=== PATIENT | male | born 1935 | race Caucasian/White ===

== ENCOUNTER 2024-05-17 10:37 | Observation (INO) | payer MEDICARE ==
[2024-05-17] VITALS (20 sets, daily range): BP systolic 121–188; BP diastolic 67–121
[~2024-05-17] VITALS: Ht 175.3 cm; Wt 68.2 kg
[2024-05-17 11:16] LABS: BASO% 0.3 % (0-3); EOS% 0.9 % (0-8); HEMATOCRIT 39.4 % (39.0-50.0); HEMOGLOBIN 13.5 g/dl (14.0-18.0); IMMATURE GRANULOCYTES 0.3 % (0.0-5.0); LYMPH% 8.7 % (15-41); MEAN CELL VOLUME 90.4 fL CALC (80.0-100.0); MEAN CORPUSCULAR HGB CONC 34.3 g/dL CAL (32.0-36.0); MONO% 6.6 % (2-13); NEUT# 5.57 thou/uL (1.82-7.42); NEUT% 83.2 % (42-76); RED BLOOD COUNT 4.36 mill/uL (4.70-6.10)
[2024-05-17 11:32] LABS: ALBUMIN 3.8 g/dL (3.2-5.0); ALKALINE PHOSPHATASE 70 u/l (38-126); ANION GAP 14 (6-22 (CALC)); BILIRUBIN, TOTAL 0.6 mg/dL (0.2-1.3); BUN 9 mg/dL (8-23); BUN/CREATININE RATIO 15 (12-20 (CALC)); CARBON DIOXIDE 27 mmol/l (22-30); CHLORIDE 93 mmol/l (95-108); CREATININE 0.6 mg/dL (0.7-1.3); ESTIMATED GFR 93 ML/MIN (>=90 (CALC)); POTASSIUM 4.5 mmol/l (3.5-5.1); SGOT/AST 23 u/l (19-48); SODIUM 129 mmol/l (137-146); TOTAL PROTEIN 6.2 g/dL (6.3-8.2)
[2024-05-17 11:37] LABS: PROTHROMBIN TIME 10.8 SECONDS (9.0-12.5)
[2024-05-17 12:17] LABS: URINE BILIRUBIN - DIPSTICK Negative (NEGATIVE); URINE BLOOD DIPSTICK Negative (NEGATIVE); URINE COLOR Yellow; URINE GLUCOSE - DIPSTICK >=1000 mg/dL (NEGATIVE); URINE KETONE Trace mg/dL (NEGATIVE); URINE LEUK ESTERASE Negative (NEGATIVE); URINE NITRITE - DIPSTICK Negative (Negative); URINE PH 6.5 (4.5-8.0); URINE PROTEIN - DIPSTICK Negative (NEG-TRACE); URINE SPECIFIC GRAVITY 1.015; URINE UROBILINOGEN - DIPSTICK 0.2 E.U./dL (0.2)
[2024-05-17] MEDS ORDERED: CLOPIDOGREL75 MG PO (12:54)
[2024-05-17] MEDS ORDERED: METFORMIN HCL500 M1 PO (12:55)
[2024-05-17] MEDS ORDERED: [UNRECOGNIZED DRUG - OTHER] PO (12:55)
[2024-05-17] MEDS ORDERED: FARXIGA10 MG PO (12:56)
[2024-05-17] MEDS ORDERED: LOSARTAN POTASS25 MG PO (12:56)
[2024-05-17] MEDS ORDERED: DESYREL50 MG PO (12:57)
[2024-05-17] MEDS ORDERED: LORTAB5 PO (12:58)
[2024-05-17] MEDS ORDERED: ASPIRINCHW 81MG PO (12:58)
[2024-05-17] MEDS ORDERED: CETIRIZINE10 MG PO (12:59)
[2024-05-17] MEDS ORDERED: MAGNESIUM HYDROXIDE 30 ML UDC PO PRN (14:45)
[2024-05-17] MEDS ORDERED: ACETAMINOPHEN 325 MG/TAB PO PRN (14:45)
[2024-05-17] MEDS ORDERED: SODIUM CHLORIDE 0.9% 1,000 ML IV PRN (14:45)
[2024-05-17] MEDS ORDERED: HYDROcodone 5 MG/Acetaminophen 325 MG/COMBO PO PRN ×2 (14:50→23:25)
[2024-05-17] MEDS ORDERED: DEXTROSE 250 ML IV PRN (14:50)
[2024-05-17] MEDS ORDERED: INSULIN LISPRO 100 UNITS/ML ML SC SCH (17:00)
[2024-05-17] MEDS ORDERED: ENOXAPARIN SODIUM 40 MG/0.4 ML SYR SC SCH (21:00)
[2024-05-17] MEDS ORDERED: traZODone HCL 50 MG/TAB PO SCH (21:00)
[2024-05-18 04:26] VITALS: BP 166/93
[2024-05-18 05:53] LABS: BASO% 0.4 % (0-3); EOS% 2.3 % (0-8); HEMATOCRIT 38.8 % (39.0-50.0); HEMOGLOBIN 13.7 g/dl (14.0-18.0); IMMATURE GRANULOCYTES 0.2 % (0.0-5.0); LYMPH% 27.6 % (15-41); MEAN CORPUSCULAR HGB 31.8 pG CALC (26.0-32.0); MEAN CORPUSCULAR HGB CONC 35.3 g/dL CAL (32.0-36.0); MONO% 9.8 % (2-13); NEUT# 3.35 thou/uL (1.82-7.42); NEUT% 59.7 % (42-76); RED BLOOD COUNT 4.31 mill/uL (4.70-6.10)
[2024-05-18 06:01] LABS: ALBUMIN 3.5 g/dL (3.2-5.0); BILIRUBIN, TOTAL 0.5 mg/dL (0.2-1.3); CREATININE 0.5 mg/dL (0.7-1.3); MAGNESIUM 1.9 mg/dL (1.6-2.3); POTASSIUM 4.3 mmol/l (3.5-5.1); TOTAL PROTEIN 5.8 g/dL (6.3-8.2)
[2024-05-18 06:57] VITALS: BP 173/96
[2024-05-18] MEDS ORDERED: LOSARTAN Potassium 25 MG/TAB PO SCH (09:00)
[2024-05-18] MEDS ORDERED: dilTIAZem HCl EXTENDED RELEASE 120 MG CAP PO SCH (09:00)
[2024-05-18] MEDS ORDERED: CLOPIDOGREL BISULFATE 75 MG/TAB TAB PO SCH (09:00)
[2024-05-18] MEDS ORDERED: ASPIRIN 81 MG/TAB PO SCH (09:00)
[2024-05-18 15:05] VITALS: BP 136/67
[2024-05-18 15:12] VITALS: BP 136/67
[2024-05-18 18:47] VITALS: BP 152/80
[2024-05-19 04:16] VITALS: BP 123/62
[2024-05-19 06:06] LABS: BASO% 0.5 % (0-3); EOS% 2.8 % (0-8); HEMATOCRIT 36.1 % (39.0-50.0); HEMOGLOBIN 12.5 g/dl (14.0-18.0); IMMATURE GRANULOCYTES 0.2 % (0.0-5.0); LYMPH% 25.6 % (15-41); MEAN CELL VOLUME 89.8 fL CALC (80.0-100.0); MEAN CORPUSCULAR HGB 31.1 pG CALC (26.0-32.0); MEAN CORPUSCULAR HGB CONC 34.6 g/dL CAL (32.0-36.0); MONO% 9.5 % (2-13); NEUT# 3.94 thou/uL (1.82-7.42); NEUT% 61.4 % (42-76); RED BLOOD COUNT 4.02 mill/uL (4.70-6.10); RED CELL DISTRI WIDTH 12.1 % (11.5-15.5)
[2024-05-19 06:09] LABS: ALBUMIN 3.1 g/dL (3.2-5.0); BILIRUBIN, TOTAL 0.6 mg/dL (0.2-1.3); CREATININE 0.5 mg/dL (0.7-1.3); MAGNESIUM 1.7 mg/dL (1.6-2.3); POTASSIUM 3.7 mmol/l (3.5-5.1); TOTAL PROTEIN 5.3 g/dL (6.3-8.2)
[2024-05-19 07:34] VITALS: BP 164/87
[2024-05-19 17:58] VITALS: BP 150/96
[2024-05-20 04:00] VITALS: BP 131/74
[2024-05-20 05:35] LABS: BASO% 0.7 % (0-3); EOS% 3.9 % (0-8); HEMATOCRIT 35.7 % (39.0-50.0); HEMOGLOBIN 12.7 g/dl (14.0-18.0); IMMATURE GRANULOCYTES 0.2 % (0.0-5.0); LYMPH% 30.8 % (15-41); MEAN CELL VOLUME 89.3 fL CALC (80.0-100.0); MEAN CORPUSCULAR HGB 31.8 pG CALC (26.0-32.0); MEAN CORPUSCULAR HGB CONC 35.6 g/dL CAL (32.0-36.0); MONO% 10.1 % (2-13); NEUT# 2.9 thou/uL (1.82-7.42); NEUT% 54.3 % (42-76); RED CELL DISTRI WIDTH 12.1 % (11.5-15.5)
[2024-05-20 05:37] LABS: ALBUMIN 3.1 g/dL (3.2-5.0); BILIRUBIN, TOTAL 0.6 mg/dL (0.2-1.3); CREATININE 0.4 mg/dL (0.7-1.3); MAGNESIUM 1.7 mg/dL (1.6-2.3); POTASSIUM 3.7 mmol/l (3.5-5.1); TOTAL PROTEIN 5.5 g/dL (6.3-8.2)
[2024-05-20 06:55] VITALS: BP 161/83
[2024-05-20 09:58] VITALS: BP 185/95
== END 2024-05-20 15:30 ==
LOC: ED 10:37 → ED-I 13:20 → ED 13:32 → MS2 13:33
PROVIDERS: Family Medicine; Internal Medicine; ADMIT Internal Medicine; ATTEND Internal Medicine
DX: R55 Syncope and collapse (principal); G93.40 Encephalopathy, unspecified; I10 Essential (primary) hypertension; E11.9 Type 2 diabetes mellitus without complications; I69.992 Facial weakness following unspecified cerebrovascular disease; Z79.84 Long term (current) use of oral hypoglycemic drugs; Z20.822 Contact with and (suspected) exposure to COVID-19
CPT/HCPCS: G0378; J1650; J1815